=== PATIENT | female | born 1980 | race African-American/Black ===

== ENCOUNTER 2021-06-25 08:24 | Outpatient (CLI) | payer OTHER ==
[2021-06-25 09:54] LABS: Hemoglobin 13.4 g/dL (12.0-15.5); Mean Corpuscular HGB CONC 32.4 g/dL (32.0-36.0); Mean Corpuscular Hemoglobin 28.7 pg (27.0-33.0); Mean Corpuscular Volume 88.4 fl (81.6-98.3); Mean Platelet Volume 9.1 fl (7.4-10.4); Platelet Count 324 10x3/uL (150-450); Red Blood Cell (RBC) Count 4.67 10x6/uL (3.90-5.03); White Blood Cell (WBC) Count 6.4 10x3/uL (3.5-10.5)
[2021-06-25 10:19] LABS: Anion Gap 13 mmol/L (10-20); BUN (Urea Nitrogen) 14 mg/dL (7.0-18.7); Calc. Creatinine Clearance 0 mL/min (70-130); Carbon Dioxide 24 mmol/L (22-29); Chloride 106 mmol/L (98-107); Glucose 105 mg/dL (70-105); Potassium 4.7 mmol/L (3.5-5.1); Sodium 138 mmol/L (136-145)
[2021-06-25 14:26] LABS: Hemoglobin A1c 5.5 % (4.0-6.0)
[2021-06-25 17:43] LABS: SARS-CoV-2 PCR by NAA Not Detected (NotDetected)
== END 2021-06-25 08:25 | disposition home or self-care (01) ==
LOC: CSHLAB 08:24
PROVIDERS: ATTEND Orthopaedic Surgery
DX: Z01.818 Encounter for other preprocedural examination (principal); Z20.822 Contact with and (suspected) exposure to COVID-19
CPT/HCPCS: 80048; 83036; 85027; 93005; 93010; U0003; U0005

== ENCOUNTER 2021-06-30 05:23 | Day surgery (SDC) | payer OTHER ==
[2021-06-28 13:15] VITALS: BMI 28.8
[2021-06-30] MEDS ORDERED: Lidocaine 1% MPF 2 ML VIAL ONE (06:25)
[2021-06-30] MEDS ORDERED: Fentanyl 100 MCG/2 ML VIAL ONE ×3 (06:54→09:07)
[2021-06-30] MEDS ORDERED: Midazolam HCl 2 mg/2 ml Vial ONE (06:54)
[2021-06-30] MEDS ORDERED: Bupivacaine PF 0.5% 30 ML VIAL ONE (06:55)
[2021-06-30] MEDS ORDERED: EPINEPHrine 1 MG/ML AMP ONE (06:56)
[2021-06-30] MEDS ORDERED: PROPOFOL 20 ML ONE (07:18)
[2021-06-30] MEDS ORDERED: Dexamethasone 4 mg/ml Vial ONE (07:19)
[2021-06-30] MEDS ORDERED: Rocuronium Bromide 10 MG/ML (10ML VIAL) ONE (07:19)
[2021-06-30] MEDS ORDERED: ePHEDrine Sulfate 50 MG/10 ML VIAL ONE (07:19)
[2021-06-30] MEDS ORDERED: Lidocaine 1% PF 5 ML VIAL ONE (07:19)
[2021-06-30] MEDS ORDERED: Ondansetron PF 4 MG/2 ML Vial ONE (07:19)
[2021-06-30] MEDS ORDERED: Glycopyrrolate 0.2 MG/ML 5 ML SYRINGE ONE (08:42)
== END 2021-06-30 10:10 | disposition home or self-care (01) ==
LOC: CSHSDC 05:23
PROVIDERS: ATTEND Orthopaedic Surgery
PROC: 0LQP0ZZ Repair Left Lower Leg Tendon, Open Approach (ICD-10-PCS; principal; 2021-06-30)
DX: S86.012A Strain of left Achilles tendon, initial encounter (principal); F32.9 Major depressive disorder, single episode, unspecified; F41.9 Anxiety disorder, unspecified; F17.210 Nicotine dependence, cigarettes, uncomplicated
CPT/HCPCS: J0171; J0690; J1100; J2250; J2405; J2704; J3010; S0020